=== PATIENT | male | born 1965 | race Caucasian/White ===

== ENCOUNTER 2020-07-13 02:59 | Emergency (ER) | payer OTHER, SELFPAY ==
--- NOTE | 2020-07-13 03:22 | ED_ITS ---
HPI - Extremity Problem General Chief complaint: Wound/Laceration Stated complaint: Cut right hand Time Seen by Provider: 07/13/20 03:21 Source: patient Mode of arrival: Ambulatory Limitations: no limitations History of Present Illness HPI Narrative: This is a 55-year-old male comes to the emergency department with complaint of laceration to the right pinky finger on the palmar side. Patient states he was moving a microwave this morning. He went to movement there something sharp in metal on the underside and cut his finger. Patient does not know his tetanus up-to-date. He denies any numbness tingling or other symptoms. He has not had any other injuries. He does have a history of bipolar, he states he has any slightly manic state at this time. He was taking lithium but has stopped that. He is currently in the process of following up with his physician to readjust his medications. He was also taking metformin which he is not currently taking. Related Data Home Medications Medication Instructions Recorded Confirmed ASCORBIC ACID (#VITAMIN C) 500 mg PO Q DAY #0 10/30/10 CA PANTOTHENATE/FOLIC ACID/VIT 1 tab PO QDAY #0 10/30/10 (MULTIVITAMIN) dextroamphetamine-amphetamine 60 mg PO Q DAY #0 10/30/10 Allergies Allergy/AdvReac Type Severity Reaction Status Date / Time Penicillins [PENICILLINS] Allergy Unknown Unverified 08/17/17 12:01 Review of Systems Review of Systems ROS Unobtainable: All systems reviewed & are unremarkable except as noted in HPI and below Patient History Social History Smoking Status: Former smoker Exam Narrative Exam Narrative: GENERAL: Alert and oriented x three, obese, well-appearing male in mild distress. HEENT: Head normocephalic, atraumatic, EOMI, pupils reactive, face symmetric, moist mucous membranes NECK: Supple, full range of motion EXTREMITIES: Normal range of motion, no clubbing or edema. Neurovascularly intact NEUROLOGICAL: Cranial nerves II through XII grossly intact. Moving all extremities SKIN: Warm, dry. Patient has lacerations dorsum and lateral side of the finger. Each about 1 cm in length they do gape. Patient is neurovascularly intact with full range of motion. Cap refill less than 2 seconds. No other lacerations noted. PSYCH: bipolar, slightly pressured speech. No tangential speech. Initial Vital Signs Initial Vital Signs: Vital Signs Temperature 98.8 F 07/13/20 03:25 Pulse Rate 93 H 07/13/20 03:25 Respiratory Rate 17 07/13/20 03:25 Blood Pressure 166/84 H 07/13/20 03:25 Pulse Oximetry 97 07/13/20 03:25 Procedures Laceration Repair Laceration 1: Site: hand (Fifth finger) Side (If applicable): right Size (cm): 2 Description: linear Depth: simple, single layer Local Anesthetic: lidocaine 1% Amount of anesthesia used (mL): 1.5 Pre-repair: wound explored, irrigated extensively and deep structures intact Skin layer closed with: nylon Size (cm): 4-0 Number of sutures: 4 Course Orders Ordered: Discontinued Medications Bacitracin (Bacitracin Oint 0.9 Gm Pckt) 1 applic TOP NOW ONE Stop: 07/13/20 04:00 Last Admin: 07/13/20 04:13 Dose: 1 applic Documented by: ADONIS Diphtheria/Tetanus/Acell Pertussis (Tet,Diph,Pertuss(Acell),Vac/Pf 0.5 Ml Syringe) 0.5 ml IM .ONCE ONE Stop: 07/13/20 03:33 Last Admin: 07/13/20 03:37 Dose: 0.5 ml Documented by: ADONIS Lidocaine/Sodium Bicarbonate (Lido 1%/Sod Bicarb 8.4% (10ml) 10 Ml Syringe) 10 ml INJ NOW ONE Stop: 07/13/20 03:33 Last Admin: 07/13/20 03:36 Dose: 10 ml Documented by: ADONIS Vital Signs Vital signs: Vital Signs - 8 hr 07/13/20 03:25 07/13/20 04:14 Temperature 98.8 F Pulse Rate 93 H 95 H Respiratory Rate 17 18 Blood Pressure 166/84 H 151/85 H Pulse Oximetry 97 96 Discharge Plan Departure Patient Disposition: Home Clinical Impression: Laceration of finger Qualifiers: Encounter type: initial encounter Finger: little finger Damage to nail status: without damage Foreign body presence: without foreign body Laterality: right Qualified Code(s): S61.216A - Laceration without foreign body of right little finger without damage to nail, initial encounter Instructions: DI for Laceration Repair -- Finger Activity Restrictions/Additional Instructions: Follow-up for suture removal in 7-10 days. Wound Care: Keep wound(s) clean and dry. Wash daily with soap and water only. Do not use over the counter products (alcohol or peroxide)on the wounds unless instructed by a physician. Wear a splint or bandage to remind you not to move her fingers so that you not pull or tear the sutures out. If wound condition worsens (increased/expanding redness, developing fluid blisters, or worsening pain), either contact your doctor for an urgent re- assessment , or return to the Emergency Department. Return to the Emergency Department for any new or worsening symptoms. Return to the ED, urgent care, or vist a primary care doctor for removal or suture or adryan 7-10 days Return if fever greater than 100.4 Fahrenheit, increased swelling, increasing pain or worsening symptoms such as increased discharge or spreading redness. Prescriptions: No Action dextroamphetamine-amphetamine 20 MG capsule,extended release 24hr 60 mg PO Q DAY Qty: 0 RF: 0 ASCORBIC ACID (#VITAMIN C) 500 mg PO Q DAY Qty: 0 RF: 0 CA PANTOTHENATE/FOLIC ACID/VIT (MULTIVITAMIN) 1 tab PO QDAY Qty: 0 RF: 0
[2020-07-13 03:25] VITALS: BP 166/84; PULSE 93; RESP 17; TEMP 37.1; O2SAT 97; BMI 34.5
[2020-07-13] MEDS: LIDO 1%/SOD BICARB 8.4% (10ML) 10 ML SYRINGE INJ (03:36)
[2020-07-13] MEDS: TET,DIPH,PERTUSS(ACELL),VAC/PF 0.5 ML SYRINGE IM (03:37)
[2020-07-13] MEDS: BACITRACIN OINT 0.9 GM PCKT 1 APPLIC TOP (04:13)
[2020-07-13 04:14] VITALS: BP 151/85; PULSE 95; RESP 18; O2SAT 96
== END 2020-07-13 04:15 | disposition home or self-care (01) ==
PROVIDERS: Emergency Provider Emergency Medicine
DX: S61.216A Laceration without foreign body of right little finger without damage to nail, initial encounter (principal); W45.8XXA Other foreign body or object entering through skin, initial encounter; E66.9 Obesity, unspecified; Z68.34 Body mass index [BMI] 34.0-34.9, adult; Z23 Encounter for immunization
CPT/HCPCS: 12001; 29130; 90471; 99282; 99283; 90715

== ENCOUNTER → 2020-12-10 11:38 | Outpatient (CLI) | payer OTHER, SELFPAY ==
[2020-12-10 13:32] LABS: Hemoglobin A1C% w Est Avg Glu 11.5 % (4.0-6.0)
[2020-12-10 13:49] LABS: Alanine Aminotransferase 30 IU/L (<50); Albumin 3.9 g/dL (3.5-5.0); Albumin Globulin Ratio 1.5 (1.0-2.8); Alkaline Phosphatase 49 U/L (38-126); Aspartate Aminotransferase 31 IU/L (17-59); BUN Creatinine Ratio 25.4 (6-22); Bilirubin Total 0.4 mg/dL (0.2-1.3); Blood Urea Nitrogen 17 mg/dL (9-20); Calcium 8.9 mg/dL (8.4-10.2); Carbon Dioxide 24 mmol/L (22-32); Chloride 106 mmol/L (98-107); Cholesterol 202 mg/dL (140-199); Estimated Glomerular Filt Rate > 60.0 mL/min (>60); Globulin 2.6 g/dL (1.7-4.1); Glucose 172 mg/dL (70-100); HDL Cholesterol 53 mg/dL (40-60); HEMOLYSIS < 15 (0-50); LDL Cholesterol Calculated 115 mg/dL (<100); Lithium 0.2 mmol/L (0.6-1.2); Potassium 4.1 mmol/L (3.4-5.1); Sodium 136 mmol/L (137-145); Total Protein 6.5 g/dL (6.3-8.2); Triglycerides 170 mg/dL (35-150)
== END ==
PROVIDERS: PCP Family Medicine; Referring Provider Psychiatry & Neurology Psychiatry; Visit Provider Psychiatry & Neurology Psychiatry
DX: Z79.899 Other long term (current) drug therapy (principal)
CPT/HCPCS: 36415; 80053; 80061; 80178; 83036; 84443

== ENCOUNTER → 2021-02-08 09:08 | Outpatient (ROUT) | payer OTHER, SELFPAY ==
[2021-02-08 09:31] LABS: Hemoglobin A1C% w Est Avg Glu 7.7 % (4.0-6.0)
[2021-02-08 09:41] LABS: Alanine Aminotransferase 22 IU/L (<50); Albumin 4.2 g/dL (3.5-5.0); Albumin Globulin Ratio 1.6 (1.0-2.8); Alkaline Phosphatase 48 U/L (38-126); Aspartate Aminotransferase 25 IU/L (17-59); BUN Creatinine Ratio 19.5 (6-22); Bilirubin Total 0.7 mg/dL (0.2-1.3); Blood Urea Nitrogen 15 mg/dL (9-20); Carbon Dioxide 26 mmol/L (22-32); Chloride 106 mmol/L (98-107); Estimated Glomerular Filt Rate > 60.0 mL/min (>60); Globulin 2.6 g/dL (1.7-4.1); Glucose 105 mg/dL (70-100); HEMOLYSIS < 15 (0-50); Potassium 4.2 mmol/L (3.4-5.1); Sodium 137 mmol/L (137-145); Total Protein 6.8 g/dL (6.3-8.2)
[2021-02-08 09:46] LABS: Lithium 0.3 mmol/L (0.6-1.2)
== END ==
PROVIDERS: PCP Family Medicine; Visit Provider Psychiatry & Neurology Psychiatry
DX: Z79.899 Other long term (current) drug therapy (principal)
CPT/HCPCS: 36415; 80053; 80178; 83036

== ENCOUNTER → 2021-04-20 11:09 | Outpatient (CLI) | payer OTHER, SELFPAY ==
[2021-04-20 14:45] LABS: Hemoglobin A1C% w Est Avg Glu 6.3 % (4.0-6.0)
== END ==
PROVIDERS: PCP Family Medicine; Referring Provider Podiatrist; Visit Provider Podiatrist
DX: M72.2 Plantar fascial fibromatosis (principal)
CPT/HCPCS: 36415; 83036

== ENCOUNTER → 2021-04-22 08:59 | Outpatient (CLI) | payer OTHER, SELFPAY ==
[2021-04-22 11:32] LABS: COVID19 -Nasal RAPID Negative (Negative)
== END ==
PROVIDERS: PCP Family Medicine; Visit Provider Physician Assistant
DX: Z20.822 Contact with and (suspected) exposure to COVID-19 (principal)
CPT/HCPCS: 87635

== ENCOUNTER 2021-04-24 06:33 | Day surgery (SDC) | payer OTHER, SELFPAY ==
[2021-04-22 14:55] VITALS: BMI 35.2
[2021-04-23 08:00] VITALS: BMI 35.2
[2021-04-24] VITALS (9 sets, daily range): BP systolic 125–136; BP diastolic 72–87; PULSE 71–78; RESP 12–20; TEMP 36.2–36.9; O2SAT 94–99; BMI 34.9
[2021-04-24] MEDS: LACTATED RINGERS 1,000 ML 42 ML IV (07:15)
--- NOTE | 2021-04-24 07:40 | PM.PREOP ---
Pre-operative Note COVID-19 COVID-19 status: Negative Result date/Date tested (Pos, Neg/Pending): 04/22/21 Interval Note History & Physical reviewed/Exam performed by Physician: Yes Changes to H&P: No
--- NOTE | 2021-04-24 07:41 | PM.OP.1 ---
Operative Date/Time/Diagnoses Date of procedure: 04/24/21 Time of procedure: 07:41 Pre-op diagnosis: Left plantar fasciitis Post-op diagnosis: same Procedure & Clinicians Procedure: Left endoscopic plantar fascial partial release Same procedure as scheduled: Yes Indications: Painful longstanding plantar fasciitis to the left foot. Conservative measures failed to alleviate his pain and he wished to have surgical intervention at this time. We spoke of the risks, potential complications, expected outcomes. Consent was signed, no contraindications to the procedure at this time. Surgeon: Kia Tian Click Yes if Unassisted: Yes Anesthesia Type: General Operative Notes Closure Type: primary Specimen(s): none sent Estimated Blood Loss (mL): 5 Blood products transfused: none Tourniquet time (min): 17 Procedure in detail: The patient was brought to the operating room and placed on the operating table in supine position. Well-padded and appropriately aligned. Following induction of general anesthesia, local anesthesia was attained the patient's heel. The foot and ankle were then prepped and draped in usual aseptic manner. Toes were shielded with a drape as well. After verification of anesthesia the tourniquet was inflated to the ankle. An incision was made over the medial heel just distal to the medial calcaneal tubercle. After blunt dissection to the origin point of the medial fascial band, a fascial elevator was used to gently remove some of the fat from the fascial band. Once more fully isolated, the trochar and obturator were placed in the incision from medial to lateral. An incision was made laterally to allow it's exit. The canal was cleaned using cotton tipped applicators to allow better visualization. The arthroscope was inserted laterally and a probe medially. Pictures were taken of the fascia then the probe was replaced with a blade. While dorsiflexing the forefoot, approximately one third to one half of the plantar fascia was transected from the central to medial aspect. Underlying this was seen the muscle. Pictures taken. System rotated plantarly to verify that all fibers of the plantar fascia on that side had been released in that section. Instrumentation removed. The area was irrigated with copious amounts of normal saline. The system was then removed. After the tourniquet was deflated, a prompt hyperemic response was seen to the foot. Closed skin with 4-0 nylon. The incisions were dressed with a sterile lightly compressive dressing and a postsurgical boot. The patient was transferred to the PACU with vital signs stable and vascular status intact. Post-operative Condition: stable Disposition: PACU Plan for aftercare: Following a period of postoperative monitoring, the patient be discharged home on written and oral postoperative instructions including keeping the dressing dry and intact, no greater than 50% weight on surgical foot, elevating the foot when seated home. DVT prevention techniques have been reviewed. Keep boot on (or night splint) for 3 weeks while sleeping. Boot on during daytime as well until further discussion at first post op visit.
[2021-04-24] MEDS: CLINDAMYCIN 600 MG/50 ML PIGGYBACK 50 MG IV (07:55)
--- NOTE | 2021-04-24 08:12 | SUR.OPER ---
Supine on padded OR bed, head on pillow, arms secured on padded arm boards at <90 degrees abduction, legs uncrossed, safety belt at thigh, tape over blanket over lower legs.Gel pad under right heel/ankle. Pillow under knees.
[2021-04-24] MEDS: BUPIVACAINE 0.5% (PF) VIAL 30 ML INJ (08:21)
--- NOTE | 2021-04-24 09:02 | SUR.PHASEI ---
Received to PACU after general anesthesia. Oral airway removed on arrival to PACU. Airway patent, self maintained. Report from Dr Thomas and VANCE Meza.
[2021-04-24] MEDS: OXYCODONE/ACETAMINOPHEN 5/325 TABLET 1 TAB PO (09:19)
== END 2021-04-24 10:00 | disposition home or self-care (01) ==
PROVIDERS: PCP Family Medicine; Referring Provider Podiatrist; Visit Provider Podiatrist
PROC: (CPT 29893; principal; 2021-04-24 07:45)
DX: M72.2 Plantar fascial fibromatosis (principal); G47.33 Obstructive sleep apnea (adult) (pediatric); E11.9 Type 2 diabetes mellitus without complications; F31.9 Bipolar disorder, unspecified; Z79.84 Long term (current) use of oral hypoglycemic drugs
CPT/HCPCS: 29893; 82962; J2704; J3010

== ENCOUNTER → 2021-11-27 10:19 | Outpatient (CLI) | payer OTHER, SELFPAY ==
[2021-11-27 11:18] LABS: Add Manual Diff / Slide Review NO; Basophils Absolute Auto 0 /uL (0-100); Basophils Percent Auto 0.9 % (0-2); Eosinophils Absolute Auto 100 /uL (0-450); Eosinophils Percent Auto 1.8 % (2-4); Hematocrit 44.5 % (41-53); Hemoglobin 15.3 g/dL (13.5-17.5); Lymphocytes Absolute Auto 1400 /uL (1100-4500); Lymphocytes Percent Auto 29.1 % (25-40); Mean Corpuscular HGB Conc 34.3 % (30-36); Mean Corpuscular Hemoglobin 31.1 PG (26-34); Mean Corpuscular Volume 90.6 fL (80-100); Monocytes Absolute Auto 500 /uL (0-900); Neutrophils Absolute Auto 2800 /uL (1500-7000); Neutrophils Percent Auto 58.2 % (50-75); Platelet Count 292 X10^3/uL (150-400); Red Blood Cell Count 4.92 X10^6/uL (4.5-5.9); Red Cell Distribution Width 13.7 % (11.6-14.8); White Blood Cell Count 4.8 X10^3/uL (4.5-11.0)
[2021-11-27 11:29] LABS: Alanine Aminotransferase 40 IU/L (<50); Albumin 4.1 g/dL (3.5-5.0); Albumin Globulin Ratio 1.6 (1.0-2.8); Alkaline Phosphatase 60 U/L (38-126); Aspartate Aminotransferase 33 IU/L (17-59); BUN Creatinine Ratio 11.6 (6-22); Bilirubin Total 0.6 mg/dL (0.2-1.3); Blood Urea Nitrogen 11 mg/dL (9-20); Calcium 8.4 mg/dL (8.4-10.2); Carbon Dioxide 25 mmol/L (22-32); Chloride 106 mmol/L (98-107); Cholesterol 220 mg/dL (140-199); Estimated Glomerular Filt Rate > 60 mL/min (>60); Globulin 2.5 g/dL (1.7-4.1); Glucose 198 mg/dL (70-100); HDL Cholesterol 41 mg/dL (40-60); HEMOLYSIS < 15 (0-50); LDL Cholesterol Calculated 144 mg/dL (<100); Sodium 137 mmol/L (137-145); Total Protein 6.6 g/dL (6.3-8.2); Triglycerides 175 mg/dL (35-150)
[2021-11-27 11:48] LABS: Creatinine Urine Random 185.4 mg/dL
[2021-11-27 11:49] LABS: Lithium 0.3 mmol/L (0.6-1.2)
[2021-11-27 11:51] LABS: Microalbumi Creatinin Ratio Ur 5.9 ug/mg CR (<30); Microalbumin Urine Random 1.1 mg/dL (0-1.6)
[2021-11-27 12:24] LABS: TSH w/ Reflex to FT4 2.49 uIU/mL (0.47-4.68)
== END ==
PROVIDERS: PCP Family Medicine; Referring Provider Family Medicine; Visit Provider Family Medicine
DX: E66.9 Obesity, unspecified (principal); E78.5 Hyperlipidemia, unspecified; F31.31 Bipolar disorder, current episode depressed, mild; E11.9 Type 2 diabetes mellitus without complications
CPT/HCPCS: 36415; 80053; 80061; 80178; 82043; 82570; 83036; 84443; 85025

== ENCOUNTER → 2023-01-04 16:50 | Outpatient (CLI) | payer OTHER, SELFPAY ==
[2023-01-04 17:54] LABS: Hemoglobin A1C% w Est Avg Glu 5.9 % (4.0-6.0)
== END ==
PROVIDERS: PCP Family Medicine; Referring Provider Psychiatry & Neurology Psychiatry; Visit Provider Psychiatry & Neurology Psychiatry
DX: E11.9 Type 2 diabetes mellitus without complications (principal)
CPT/HCPCS: 83036

== ENCOUNTER 2023-09-18 09:55 | Emergency (ER) | payer OTHER, SELFPAY ==
[2023-09-18 10:03] VITALS: BP 153/80; PULSE 78; RESP 18; TEMP 36.8; O2SAT 96; BMI 36.6
--- NOTE | 2023-09-18 10:27 | ED.SKABFB ---
HPI - Skin/Abscess/Foreign Bdy General Chief complaint: Skin/Abscess/Foreign Body Stated complaint: Boil inside of left thigh Time Seen by Provider: 09/18/23 10:11 Source: patient Mode of arrival: Ambulatory Limitations: no limitations History of Present Illness HPI narrative: Patient is a 50-year-old male who is here for evaluation of approximately 3 days of a ?boil? on his left upper inner thigh. He has a insulin-dependent diabetic. He states over the past couple days it has become more painful and more red. He states he tried to drain it at home. There was no drainage now. No fevers. Has had multiple boils in the past requiring drainage. Related Data Home Medications Medication Instructions Recorded Confirmed dextroamphetamine-amphetamine ER 60 mg PO Q DAY ##0 10/30/10 04/24/21 20 mg 24hr capsule,extend release bupropion HCl 300 mg 24 hr tablet, 300 mg PO DAILY 04/24/21 04/24/21 extended release insulin NPH isoph U-100 human 100 10 unit SUBCUT BID 04/24/21 04/24/21 unit/mL subcutaneous suspension (Humulin N NPH U-100 Insulin (isophane susp)) lithium carbonate 150 mg capsule 450 mg PO DAILY 04/24/21 04/24/21 pen needle, diabetic 32 gauge x 04/24/21 04/24/21 (BD Danisha 2nd Gen Pen Needle) pramipexole 0.25 mg tablet 0.5 mg PO DAILY 04/24/21 04/24/21 trazodone 100 mg tablet 100 mg PO DAILY 04/24/21 04/24/21 Previous Rx's Medication Instructions Recorded doxycycline hyclate 100 mg capsule 100 mg PO BID 7 days #14 caps 09/18/23 Allergies Allergy/AdvReac Type Severity Reaction Status Date / Time Penicillins [PENICILLINS] Allergy Unknown Verified 04/24/21 06:43 Review of Systems Constitutional Constitutional: Reports system reviewed and no additional complaints, except as documented Gastrointestinal Gastrointestinal: Reports system reviewed and no additional complaints, except as documented Integumentary/Breasts Skin/Breast: Reports system reviewed and no additional complaints, except as documented Patient History Medical History Diabetes ADD (attention deficit disorder) Bipolar affective disorder DIANA on CPAP Surgical History History of surgery Hx of arthroscopy of right knee Hx of hernia repair Social History household members: spouse Smoking Status: Former smoker alcohol intake: current Smoking Status: Former smoker alcohol intake frequency: 0-2 drinks per day Substance Use Type: does not use Exam Initial Vital Signs Initial Vital Signs: Vital Signs Temperature 98.2 F 09/18/23 10:03 Pulse Rate 78 09/18/23 10:03 Respiratory Rate 18 09/18/23 10:03 Blood Pressure 153/80 H 09/18/23 10:03 Pulse Oximetry 96 09/18/23 10:03 Oxygen Delivery Method Room Air 09/18/23 10:03 Other: Scrotum is unremarkable. Skin Other: There is a 3 cm x 3 cm area of induration of the left upper inner thigh. It does not involve the scrotum. There is some surrounding erythema. No crepitus. No drainage. Procedures Abscess I/D I&D #1: Site: other (Upper inner thigh) Side (if applicable): left Local Anesthetic: lidocaine 1% and with epi Amount of anesthesia used (mL): 5 Technique: incised with #11 blade Irrigation: No Packing used?: none Course Vital Signs Vital signs: Vital Signs - 8 hr 09/18/23 10:03 Temperature 98.2 F Pulse Rate 78 Respiratory Rate 18 Blood Pressure 153/80 H Pulse Oximetry 96 Oxygen Delivery Method Room Air MDM - Skin/Abscess/Foreign Bdy MDM Narrative Medical decision making narrative: Bedside ultrasound shows a 1 x 1 cm abscess in the area of the induration. There is some surrounding erythema. I have low suspicion for Jonna's gangrene. There is no crepitus. Patient is nontoxic appearing. Had a discussion with him since the abscesses fairly small. We discussed incision and drainage versus just putting him on antibiotics to see whether or not his symptoms will improve. After this discussion he opted for the incision and drainage. This was performed without issue. Will place him on doxycycline. I feel that this is superficial. I do not feel the need for advanced imaging like CT scan. It does not involve the scrotum or the testicles. Patient was given strict return precautions. He expressed understanding and agreement. Discharge Plan Departure Patient Disposition: Home Clinical Impression: Abscess of skin or subcutaneous tissue, Cellulitis Instructions: DI for Cellulitis -- Adult Activity Restrictions/Additional Instructions: Expect some drainage from the area for the next couple days. You will just need to change the bandage as needed. Please start taking the antibiotics as directed. You can shower like normal. Return to the emergency department for new symptoms. Prescriptions: New doxycycline hyclate 100 mg capsule 100 mg PO BID 7 Days Qty: 14 0RF No Action dextroamphetamine-amphetamine 20 MG capsule,extended release 24hr 60 mg PO Q DAY Qty: 0 lithium carbonate 150 mg capsule 450 mg PO DAILY trazodone 100 mg tablet 100 mg PO DAILY Humulin N NPH U-100 Insulin 100 unit/mL suspension 10 unit SUBCUT BID Patient Comments: ADMINISTER 20 UNITS UNDER THE SKIN EVERY EVENING pramipexole 0.25 mg tablet 0.5 mg PO DAILY Patient Comments: TAKE 1 TABLET BY MOUTH EVERY MORNING FOR 7 DAYS THEN TAKE 2 TABLETS BY MOUTH EVERY MORNING bupropion HCl 300 mg tablet extended release 24 hr 300 mg PO DAILY Patient Comments: TAKE 1 TABLET BY MOUTH EVERY DAY (DME) pen needle, diabetic [BD Danisha 2nd Gen Pen Needle] 32 gauge x 5/32 needle MISCELLANEOUS Patient Comments: USE 1 NEEDLE UNDER THE SKIN TWICE DAILY Referrals: Jr Nicole MD [Primary Care Provider] - Stand Alone Forms: Patient Portal/API
== END 2023-09-18 10:40 | disposition home or self-care (01) ==
LOC: ED 10:40
PROVIDERS: Emergency Provider Emergency Medicine; PCP Family Medicine
DX: L02.416 Cutaneous abscess of left lower limb (principal); L03.116 Cellulitis of left lower limb; Z79.899 Other long term (current) drug therapy
CPT/HCPCS: 10060; 99281; 99283

== ENCOUNTER → 2023-10-10 14:28 | Outpatient (CLI) | payer OTHER, SELFPAY ==
[2023-10-10 16:03] LABS: Add Manual Diff / Slide Review NO; Basophils Absolute Auto 100 /uL (0-100); Basophils Percent Auto 0.9 % (0-2); Eosinophils Absolute Auto 200 /uL (0-450); Eosinophils Percent Auto 2.4 % (2-4); Hematocrit 42.4 % (41-53); Hemoglobin 14.6 g/dL (13.5-17.5); Lymphocytes Absolute Auto 1600 /uL (1100-4500); Lymphocytes Percent Auto 23.1 % (25-40); Mean Corpuscular HGB Conc 34.4 % (30-36); Mean Corpuscular Hemoglobin 31.5 PG (26-34); Mean Corpuscular Volume 91.5 fL (80-100); Monocytes Absolute Auto 500 /uL (0-900); Neutrophils Absolute Auto 4700 /uL (1500-7000); Neutrophils Percent Auto 66.6 % (50-75); Platelet Count 284 X10^3/uL (150-400); Red Blood Cell Count 4.64 X10^6/uL (4.5-5.9); Red Cell Distribution Width 13.6 % (11.6-14.8); White Blood Cell Count 7.1 X10^3/uL (4.5-11.0)
[2023-10-10 16:07] LABS: Hemoglobin A1C% w Est Avg Glu 9.2 % (4.0-6.0)
[2023-10-10 16:41] LABS: Lithium 0.4 mmol/L (0.6-1.2)
[2023-10-10 16:44] LABS: Alanine Aminotransferase 24 IU/L (<50); Albumin 4.1 g/dL (3.5-5.0); Alkaline Phosphatase 64 U/L (38-126); Aspartate Aminotransferase 26 IU/L (17-59); BUN Creatinine Ratio 13.9 (6-22); Bilirubin Total 0.6 mg/dL (0.2-1.3); Blood Urea Nitrogen 14 mg/dL (9-20); Calcium 8.8 mg/dL (8.4-10.2); Carbon Dioxide 26 mmol/L (22-32); Chloride 108 mmol/L (98-107); Cholesterol 176 mg/dL (140-199); Estimated Glomerular Filt Rate > 60 mL/min (>60); Globulin 2.1 g/dL (1.7-4.1); Glucose 212 mg/dL (70-100); HDL Cholesterol 56 mg/dL (40-60); HEMOLYSIS < 15 (0-50); LDL Cholesterol Calculated 54 mg/dL (<100); Potassium 4.2 mmol/L (3.4-5.1); Sodium 137 mmol/L (137-145); Total Protein 6.2 g/dL (6.3-8.2); Triglycerides 332 mg/dL (35-150)
[2023-10-10 17:11] LABS: Prostate Specific Antigen Scrn 0.808 ng/mL (0.1-4.0)
[2023-10-10 17:30] LABS: HIV 1 & 2 Ab/Ag 4th Gen Combo NEGATIVE (NEGATIVE); Hep C Virus Ab w/Reflex Quant NEGATIVE s/c (NEGATIVE)
[2023-10-10 17:47] LABS: Creatinine Urine Random 159.03 mg/dL
[2023-10-10 17:52] LABS: Microalbumin Urine Random 0.9 mg/dL (0-1.6)
== END ==
PROVIDERS: PCP Family Medicine; Referring Provider Family Medicine; Visit Provider Family Medicine
DX: E11.9 Type 2 diabetes mellitus without complications (principal); Z79.4 Long term (current) use of insulin; E78.5 Hyperlipidemia, unspecified; F31.9 Bipolar disorder, unspecified; N52.9 Male erectile dysfunction, unspecified; Z12.5 Encounter for screening for malignant neoplasm of prostate; Z11.59 Encounter for screening for other viral diseases; Z11.4 Encounter for screening for human immunodeficiency virus [HIV]
CPT/HCPCS: 36415; 80053; 80061; 80178; 82043; 82570; 83036; 85025; 86803; 87389; G0103

== ENCOUNTER 2024-03-01 09:31 | Emergency (ER) | payer OTHER, SELFPAY ==
[2024-03-01 09:47] VITALS: BP 138/83; PULSE 66; RESP 14; TEMP 36.5; O2SAT 95; BMI 38.3
--- NOTE | 2024-03-01 11:22 | ED_ITS ---
HPI - Extremity Injury (Lower) <Tika Nielson PA-C - Last Filed: 03/01/24 12:24> General Chief Complaint: Extremity Injury, Lower Stated Complaint: per pt torn meniscus Source: patient Mode of arrival: Ambulatory History of Present Illness HPI Narrative: Patient is a very pleasant 58-year-old male that presents to the emergency room department complaining of left knee pain. 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 He has been experiencing left knee pain that has been ongoing for the past 10 days, worsening over the last several days, has had a previous meniscus tear in his right knee, states this feels exactly like his previous meniscus tear, here requesting an x-ray, possible MRI, unable to get in to see his primary care doctor, and then also requesting pain relief. Patient denies recent substantial injury, trauma or fall. No weakness, numbness, tingling to the left lower extremity. No other physical complaints currently at this time. Related Data Home Medications Medication Instructions Recorded Confirmed dextroamphetamine-amphetamine ER 60 mg PO Q DAY ##0 10/30/10/10/23 20 mg 24hr capsule,extend release bupropion HCl 300 mg 24 hr tablet, 300 mg PO DAILY 04/24/21 10/10/23 extended release pen needle, diabetic 32 gauge x 04/24/21 10/10/23 (BD Danisha 2nd Gen Pen Needle) pramipexole 0.25 mg tablet 0.5 mg PO DAILY 04/24/21 10/10/23 trazodone 100 mg tablet 100 mg PO DAILY 04/24/21 10/10/23 atorvastatin 10 mg tablet 10 mg PO DAILY 10/10/23 10/10/23 lithium carbonate 150 mg capsule 450 mg PO BID 10/10/23 10/10/23 Previous Rx's Medication Instructions Recorded sildenafil 100 mg tablet (Viagra) 50 - 100 mg (0.5 - 1 x 100 mg) PO 10/10/23 DAILY PRN sexual activity #30 tabs semaglutide 0.25 mg or 0.5 mg (2 0.5 mg (0.736 mL) SUBCUT QWEEK #3 11/16/23 mg/3 mL) subcutaneous pen injector mL (Ozempic) insulin NPH isoph U-100 human 100 30 unit (0.3 mL) SUBCUT BID #60 mL 02/29/24 unit/mL (3 mL) subcutaneous pen (Novolin N FlexPen) oxycodone-acetaminophen 5 mg-325 1 tab PO Q4-6H PRN pain #14 tabs 03/01/24 mg tablet (Percocet) Allergies Allergy/AdvReac Type Severity Reaction Status Date / Time Penicillins [PENICILLINS] Allergy Unknown Verified 03/01/24 09:47 bee venom protein (honey bee) AdvReac Unknown Verified 03/01/24 09:47 Review of Systems <Tika Nielson PA-C - Last Filed: 03/01/24 12:24> Review of Systems Narrative: Negative except as above Musculoskeletal Comments: Her left knee pain Patient History <Tika Nielson PA-C - Last Filed: 03/01/24 12:24> Medical History Obesity (BMI 30-39.9) Erectile dysfunction Bipolar 1 disorder Hyperlipidemia Type 2 diabetes mellitus without complication, with long-term current use of insulin Diabetes ADD (attention deficit disorder) Bipolar affective disorder DIANA on CPAP (~1994) Surgical History Anesthesia History of surgery Hx of hernia repair Hx of arthroscopy of right knee Social History household members: spouse Smoking Status: Former smoker alcohol intake: current Smoking Status: Former smoker alcohol intake frequency: holidays/special occasions only Substance Use Type: does not use Exam <Tika Nielson PA-C - Last Filed: 03/01/24 12:24> Initial Vital Signs Initial Vital Signs: Vital Signs Temperature 97.7 F 03/01/24 09:47 Pulse Rate 66 03/01/24 09:47 Respiratory Rate 14 03/01/24 09:47 Blood Pressure 138/83 03/01/24 09:47 Pulse Oximetry 95 03/01/24 09:47 Oxygen Delivery Method Room Air 03/01/24 09:47 Reviewed Const General: cooperative, healthy appearing, comfortable, well developed, well groomed, No acute distress, No in distress and No anxious Eyes General: Yes appearance normal, both eyes and all related structures Pupils: PERRL EOM: EOM intact bilaterally Skin Other: Warm pink and dry Neuro Other: Cranial nerves are grossly intact, cognition, speech intact. Patient ambulated in on his own power, did not appear to be in any major discomfort. Mild antalgic gait favoring the left knee. Extrem Other: Range of motion, strength, pulses, cap refill preserved in the upper and lower extremities. Patient states that he has discomfort and pain along the medial aspect of the left knee, he states this is where he had issues and problems in the right knee, is the medial meniscus area. He states that this is where he has all the discomfort and pain currently with movement and palpation. Psych Other: Appearance, mental status, speech, movement, mood, affect, attitude, thought process, thought content and judgment are all intact. <Elaine Larios MD - Last Filed: 03/01/24 18:52> Initial Vital Signs Initial Vital Signs: Vital Signs Temperature 97.7 F 03/01/24 09:47 Pulse Rate 66 03/01/24 09:47 Respiratory Rate 14 03/01/24 09:47 Blood Pressure 138/83 03/01/24 09:47 Pulse Oximetry 95 03/01/24 09:47 Oxygen Delivery Method Room Air 03/01/24 09:47 Scores <Tika Nielson PA-C - Last Filed: 03/01/24 12:24> GCS Citation: 15 Course <Tika Nielson PA-C - Last Filed: 03/01/24 12:24> Orders Ordered: ED Orders 03/01/24 11:33 XR knee LT 3V Stat Vital Signs Vital signs: Vital Signs - 8 hr 03/01/24 12:33 Pulse Rate 72 Respiratory Rate 14 Blood Pressure 126/66 Pulse Oximetry 100 Oxygen Delivery Method Room Air Reviewed <Elaine Larios MD - Last Filed: 03/01/24 18:52> Orders Ordered: ED Orders 03/01/24 11:33 XR knee LT 3V Stat Vital Signs Vital signs: Vital Signs - 8 hr 03/01/24 12:33 Pulse Rate 72 Respiratory Rate 14 Blood Pressure 126/66 Pulse Oximetry 100 Oxygen Delivery Method Room Air MDM - Extremity Injury (Lower) <Tika Nielson PA-C - Last Filed: 03/01/24 12:24> Imaging Data Extremity x-ray #1: My Impression: Left knee x-ray, no substantial acute findings, no signs of substantial arthritis, no fractures are noted. No major joint effusion is noted on x-ray. Radiologist's Impression: [address] [address] XRay Report Signed Patient: Lele Rico MR#: [id number] : 1965 Acct:[id number] Age/Sex: 58 / M Date of Service: 03/01/24 Loc: ED Accession Number: [id number] Procedure: XR knee LT 3V Ordering Provider: Tika Nielson PA-C PROCEDURE: XR KNEE LT 3V INDICATIONS: Medial knee pain TECHNIQUE: 3 views of the knee were acquired. COMPARISON: None. FINDINGS: Bones: No fractures or dislocations. No suspicious bony lesions. Soft tissues: No joint effusion. No suspicious soft tissue calcifications. IMPRESSION: No acute bony abnormality or significant effusion. Dictated by: Ivan Washington M.D. on 03/01/2024 at 12:14 Approved by: Ivan Washington M.D. on 03/01/2024 at 12:14 [facility] Narrative Medical decision making narrative: Patient is a 50-year-old male here with left knee pain, previous right meniscus tear, patient states that the knee pain feels exactly like a meniscus tear. Requesting x-ray, pain control. Hoping that I can do an MRI for him. Unable to get into see his primary care doctor today. No other further requests her wi eds. X-rays done no acute findings Exam medial compartment discomfort and pain Suggested he call his primary care doctor and ask his primary care doctor to order an outpatient MRI prior to his appointment so they can discuss the findings He is contacted his primary care doctor while sitting and waiting here in the emergency department to try to get an appointment as an outpatient MRI ordered Prescription has been sent to his pharmacy Patient discharged with an Aroldo wrap Supportive therapy education ED precautions Differential diagnosis; internal derangement, left knee sprain, left knee strain, medial collateral ligament injury. Discharge Plan Departure Patient Disposition: Home Clinical Impression: Internal derangement of knee Qualifiers: Laterality: right Qualified Code(s): M23.91 - Unspecified internal derangement of right knee Activity Restrictions/Additional Instructions: Rest, ice, elevate. Consider an Aroldo wrap. Continue with the [id number] ibuprofen and Tylenol. X-ray here in the emergency department Please contact your primary care doctor for referral for outpatient MRI of the left knee Prescription has been sent to your pharmacy No drinking, driving, operating power equipment or power tools on the medication Return in the emergency department as needed Prescriptions: New oxycodone-acetaminophen [Percocet] 5-325 mg tablet 1 tab PO Q4-6H PRN (Reason: pain) Qty: 14 0RF No Action dextroamphetamine-amphetamine 20 MG capsule,extended release 24hr 60 mg PO Q DAY Qty: 0 Novolin N FlexPen 100 unit/mL (3 mL) insulin pen 30 unit SUBCUT BID Qty: 60 0RF atorvastatin 10 mg tablet 10 mg PO DAILY lithium carbonate 150 mg capsule 450 mg PO BID sildenafil [Viagra] 100 mg tablet 50 - 100 mg PO DAILY PRN (Reason: sexual activity) Qty: 30 11RF Rx Instructions: take 30 minutes to 4 hours before activity Ozempic 0.25 mg or 0.5 mg (2 mg/3 mL) pen injector 0.5 mg SUBCUT QWEEK Qty: 3 11RF trazodone 100 mg tablet 100 mg PO DAILY pramipexole 0.25 mg tablet 0.5 mg PO DAILY Patient Comments: TAKE 1 TABLET BY MOUTH EVERY MORNING FOR 7 DAYS THEN TAKE 2 TABLETS BY MOUTH EVERY MORNING bupropion HCl 300 mg tablet extended release 24 hr 300 mg PO DAILY Patient Comments: TAKE 1 TABLET BY MOUTH EVERY DAY (DME) pen needle, diabetic [BD Danisha 2nd Gen Pen Needle] 32 gauge x 5/32 needle MISCELLANEOUS Patient Comments: USE 1 NEEDLE UNDER THE SKIN TWICE DAILY Referrals: Claire Mensah DO [Primary Care Provider] - Stand Alone Forms: Patient Portal/API ED Sign-out <Elaine Larios MD - Last Filed: 03/01/24 18:52> Cosign ED Attending Cosignature Attestation: I was immediately available in the department for consultation throughout this patient's visit. Elaine Larios MD
--- NOTE | 2024-03-01 11:33 | DI.RAD.S_ITS ---
PROCEDURE: XR KNEE LT 3V INDICATIONS: Medial knee pain TECHNIQUE: 3 views of the knee were acquired. COMPARISON: None. FINDINGS: Bones: No fractures or dislocations. No suspicious bony lesions. Soft tissues: No joint effusion. No suspicious soft tissue calcifications. IMPRESSION: No acute bony abnormality or significant effusion. Dictated by: Ivan Washington M.D. on 03/01/2024 at 12:14 Approved by: Ivan Washington M.D. on 03/01/2024 at 12:14
--- NOTE | 2024-03-01 12:31 | PC.NURSE ---
provider assessed patient and his left knee. patient was able to ambulate in the department, independently without assisted device or complaints of pain.
[2024-03-01 12:33] VITALS: BP 126/66; PULSE 72; RESP 14; O2SAT 100
== END 2024-03-01 12:35 | disposition home or self-care (01) ==
PROVIDERS: Emergency Provider Physician Assistant; PCP Family Medicine
DX: M23.91 Unspecified internal derangement of right knee (principal)
CPT/HCPCS: 73562; 99281; 99283

== ENCOUNTER → 2024-03-05 12:04 | Outpatient (CLI) | payer OTHER, SELFPAY ==
[2024-03-05 13:08] LABS: Hemoglobin A1C% w Est Avg Glu 6.8 % (4.0-6.0)
[2024-03-05 13:16] LABS: Lithium 0.6 mmol/L (0.6-1.2)
[2024-03-05 13:18] LABS: Cholesterol 130 mg/dL (140-199); HDL Cholesterol 60 mg/dL (40-60); LDL Cholesterol Calculated 55 mg/dL (<100); Triglycerides 73 mg/dL (35-150)
== END ==
LOC: LAB 12:05
PROVIDERS: PCP Family Medicine; Referring Provider Family Medicine; Visit Provider Family Medicine
DX: F31.9 Bipolar disorder, unspecified (principal); E78.5 Hyperlipidemia, unspecified; E11.9 Type 2 diabetes mellitus without complications; Z79.4 Long term (current) use of insulin; E66.9 Obesity, unspecified
CPT/HCPCS: 36415; 80061; 80178; 83036

== ENCOUNTER → 2024-09-05 09:09 | Outpatient (CLI) | payer OTHER, SELFPAY ==
[2024-09-05 10:49] LABS: Hematocrit 42.8 % (41-53); Hemoglobin 14.9 g/dL (13.5-17.5); Mean Corpuscular HGB Conc 34.9 % (30-36); Mean Corpuscular Hemoglobin 31.1 PG (26-34); Mean Corpuscular Volume 89.1 fL (80-100); Platelet Count 289 X10^3/uL (150-400); Red Cell Distribution Width 12.8 % (11.6-14.8); White Blood Cell Count 7.1 X10^3/uL (4.5-11.0)
[2024-09-05 10:58] LABS: Hemoglobin A1C% w Est Avg Glu 12.4 % (4.0-6.0)
[2024-09-05 11:09] LABS: Alanine Aminotransferase 26 IU/L (<50); Albumin 4.1 g/dL (3.5-5.0); Alkaline Phosphatase 60 U/L (38-126); Aspartate Aminotransferase 22 IU/L (17-59); BUN Creatinine Ratio 19.5 (6-22); Bilirubin Total 0.7 mg/dL (0.2-1.3); Blood Urea Nitrogen 16 mg/dL (9-20); Calcium 8.9 mg/dL (8.4-10.2); Carbon Dioxide 24 mmol/L (22-32); Chloride 101 mmol/L (98-107); Estimated Glomerular Filt Rate > 60 mL/min (>60); Globulin 2.1 g/dL (1.7-4.1); Glucose 300 mg/dL (70-99); HEMOLYSIS < 15 (0-50); Lithium 0.6 mmol/L (0.6-1.2); Potassium 4.7 mmol/L (3.4-5.1); Sodium 134 mmol/L (137-145); Total Protein 6.2 g/dL (6.3-8.2)
== END ==
PROVIDERS: PCP Family Medicine; Referring Provider Family Medicine; Visit Provider Family Medicine
DX: E11.9 Type 2 diabetes mellitus without complications (principal); E66.9 Obesity, unspecified; F31.9 Bipolar disorder, unspecified; Z79.4 Long term (current) use of insulin
CPT/HCPCS: 36415; 80053; 80178; 83036; 85027

== ENCOUNTER → 2025-02-27 08:39 | Outpatient (CLI) | payer OTHER, SELFPAY ==
--- NOTE | 2025-02-27 08:41 | DI.RAD.S_ITS ---
PROCEDURE: XR FINGER RT MIN 2V INDICATIONS: pain PIP TECHNIQUE: AP hand, 2 views of the 2nd finger(s) acquired. COMPARISON: [facility], CR, FINGER LT, 12/31/2013, 13:04. FINDINGS: Bones/joints Moderate STT 1st CMC and 1st MCP degeneration appreciated there is mild degeneration in the remaining MCP and interphalangeal joints A 3 mm exostosis projects from the volar surface of the distal 2nd phalanx. Soft tissues: No soft tissue abnormality. IMPRESSION: Degeneration. 3 mm exostosis projecting from the volar cortex of the distal 2nd phalanx Dictated by: Ha Mahmood M.D. on 02/27/2025 at 12:33 Approved by: Ha Mahmood M.D. on 02/27/2025 at 12:34
== END ==
LOC: RAD 08:40
PROVIDERS: PCP Family Medicine; Referring Provider Family Medicine; Visit Provider Family Medicine
DX: S60.00XA Contusion of unspecified finger without damage to nail, initial encounter (principal); M18.11 Unilateral primary osteoarthritis of first carpometacarpal joint, right hand; M19.041 Primary osteoarthritis, right hand; M89.9 Disorder of bone, unspecified; X58.XXXA Exposure to other specified factors, initial encounter
CPT/HCPCS: 73140

== ENCOUNTER → 2025-04-03 08:40 | Outpatient (CLI) | payer OTHER, SELFPAY ==
[2025-04-03 09:52] LABS: Blood Urea Nitrogen 16 mg/dL (9-20); Calcium 8.7 mg/dL (8.4-10.2); Carbon Dioxide 25 mmol/L (22-32); Chloride 108 mmol/L (98-107); Cholesterol 158 mg/dL (140-199); Estimated Glomerular Filt Rate > 60 mL/min (>60); Glucose 351 mg/dL (70-99); HDL Cholesterol 45 mg/dL (40-60); HEMOLYSIS 16 (0-50); Potassium 4.4 mmol/L (3.4-5.1); Sodium 139 mmol/L (137-145); Triglycerides 409 mg/dL (35-150)
[2025-04-03 10:26] LABS: Lithium 0.3 mmol/L (0.6-1.2)
[2025-04-03 10:58] LABS: TSH w/ Reflex to FT4 2.61 uIU/mL (0.47-4.68)
== END ==
PROVIDERS: PCP Family Medicine; Referring Provider Family Medicine; Visit Provider Family Medicine
DX: E11.9 Type 2 diabetes mellitus without complications (principal); E78.5 Hyperlipidemia, unspecified; E66.9 Obesity, unspecified; F31.9 Bipolar disorder, unspecified; Z79.4 Long term (current) use of insulin
CPT/HCPCS: 36415; 80048; 80061; 80178; 82043; 82570; 84443